=== PATIENT | female | born 1990 | race Hispanic/Latino ===

== ENCOUNTER 2017-09-30 18:19 | Emergency (ER) | payer MEDICARE ==
[~2017-09-30] VITALS: Ht 157.5 cm; Wt 110.7 kg
== END 2017-09-30 21:29 | disposition home or self-care (01) ==
LOC: FSED 18:19

== ENCOUNTER 2017-10-16 19:03 | Emergency (ER) | payer OTHER ==
[~2017-10-16] VITALS: Ht 157.5 cm; Wt 110.7 kg
--- OUTSIDE RECORDS SUMMARY | 2017-10-16 19:06 | XMS REPORT | Continuity of Care Document ---
Author Author [facility] Organization [facility] Address [address] [place] [address] Phone Unavailable Care Team Providers Care All Round Logger Name Role Phone MOHAN BRUCE MD PCP Advance Directives Directive Response Recorded Date/Time Does the patient have an advance directive? No 09/30/17 6:29pm Do you have a Directive to Physician? No 09/30/17 6:30pm Do you have a Medical Power of Solar Sales Advisor? No 09/30/17 6:30pm Do you have an out of hospital Do Not Resuscitate Order? No 09/30/17 6:30pm Do you have any special needs we should be aware of? No 09/30/17 6:30pm Do you have a support person here with you today? No 09/30/17 6:30pm Did patient receive Notice of Privacy Practices? Yes 09/30/17 6:30pm Did patient receive patient rights and responsibilities? Yes 09/30/17 6:30pm Problems No problem information available. Medications No medication information available. Social History Smoking Status Start Date Stop Date Former smoker Hospital Discharge Instructions No hospital discharge instruction information available. Plan of Care Discharge Date 09/30/17 9:29pm Disposition HOME, SELF-CARE Condition at Discharge Stable Instructions/Education Provided Cholelithiasis Forms Provided Work/School Excuse Prescriptions See Medication Section Additional Instructions/Education DISCHARGE INSTRUCTIONS Drink plenty of fluids. Warnings: GENERAL WARNINGS: Return or contact your physician immediately if your condition worsens or changes unexpectedly, if not improving as expected, or if other problems arise. Prescription Medications: Zofran 4 mg: Take 1 orally every six hours as needed for nausea/vomiting. Dispense ten (10). No refills. Substitution is permissible. Follow-up: Return to the emergency department as needed. Functional Status No functional status information available. Allergies, Adverse Reactions, Alerts No known allergies. Immunizations No immunization information available. Vital Signs Acute Vital Signs Vital Response Date/Time Height 5 ft 2 in 09/30/2017 6:35pm Weight 244.13 lb 09/30/2017 6:35pm Body Mass Index 44.7 kg/m^2 09/30/2017 6:35pm Results No relevant diagnostic test, laboratory data and/or discharge summary information available. Procedures No procedure information available. Encounters Encounter Location Arrival/Admit Date Discharge/Depart Date Attending Provider Departed Emergency Room [facility] 09/30/17 6:19pm 9:29pm MAYLIN PICKETT MD
[2017-10-16 19:24] LABS: BASOPHILS % 0.3 % (0.0-1.0); EOSINOPHILS # (AUTO) 0.1 (0.0-0.4); EOSINOPHILS % 0.8 % (0.0-6.0); HEMATOCRIT 34.8 % (34.2-44.1); HEMOGLOBIN 11.8 g/dL (12.0-16.0); LYMPHOCYTES # (AUTO) 1.6 (1.0-3.2); LYMPHOCYTES % 16.1 % (18.0-39.1); MEAN CORPUSCULAR HEMOGLOBIN 30.9 pg (28-32); MEAN CORPUSCULAR HGB CONC 33.9 g/dL (31-35); MEAN CORPUSCULAR VOLUME 91.1 fL (81-99); MONOCYTES # (AUTO) 0.6 (0.2-0.8); MONOCYTES % 6.2 % (4.4-11.3); NEUTROPHILS # (AUTO) 7.4 (2.1-6.9); NEUTROPHILS % 76.2 % (38.7-80.0); PLATELET COUNT 165 x10e3/uL (140-360); RED BLOOD COUNT 3.82 x10e6/uL (3.6-5.1); RED CELL DISTRIBUTION WIDTH 12.8 % (11.7-14.4)
[2017-10-16 19:42] LABS: AMYLASE 25 U/L (25-125); LIPASE 10 U/L (8-78)
[2017-10-16 19:44] LABS: ALANINE AMINOTRANSFERASE 45 IU/L (0-55); ALBUMIN 3.7 g/dL (3.5-5.0); ALBUMIN/GLOBULIN RATIO 0.9 (0.8-2.0); ALKALINE PHOSPHATASE 67 IU/L (40-150); ANION GAP 13.8 mmol/L (8-16); BLOOD UREA NITROGEN 5 mg/dL (7-26); BUN/CREATININE RATIO 9 (6-25); CALCIUM 9.8 mg/dL (8.4-10.2); CARBON DIOXIDE 20 mmol/L (22-29); CHLORIDE 106 mmol/L (98-107); CREATININE, SERUM 0.56 mg/dL (0.57-1.11); EST GLOMERULAR FILTRATION RATE > 60 ML/MIN (60-); GLUCOSE 92 mg/dL (74-118); POTASSIUM 3.8 mmol/L (3.5-5.1); SODIUM 136 mmol/L (136-145)
[2017-10-16 21:09] LABS: BILIRUBIN,URINE NEGATIVE (NEGATIVE); CLARITY,URINE SL CLOUDY (CLEAR); COLOR,URINE STRAW (YELLOW); KETONES,URINE 2+ (NEGATIVE); LEUKOCYTE ESTERASE ,URINE NEGATIVE (NEGATIVE); NITRITE,URINE NEGATIVE (NEGATIVE); PROTEIN,URINE DIPSTICK 1+ (NEGATIVE); URINE UROBILINOGEN 1 mg/dL (0.2 - 1)
[2017-10-16 21:19] LABS: BACTERIA,URINE MANY /HPF; EPITHELIAL CELLS,URINE MANY /LPF
--- NOTE | 2017-10-17 00:13 | Diagnostic Imaging Report ---
EXAM: US OB COMPLETE SINGLE GEST DATE: 10/16/2017 12:00 AM INDICATION: History of gallstones, , abdominal pain COMPARISON: None TECHNIQUE: Multiple transabdominal images of the uterus and fetus were obtained using perales-scale, color Doppler and M-mode. FINDINGS: A1 Type of Gestation: [place] GA by current U/S: 19w 3d Measurements: BPD 44 mm 19w 2d HC 172.3 mm 19w 6d AC 144.6 mm 19w 5d FL 30.4 mm 19w 3d Estimated Weight: 303.07 g, 56.9% size is appropriate for gestational age. Visualized Anatomy: Four chamber cardiac view Regular cardiac rhythm - limited Stomach Kidneys Bladder - not seen Position: Cephalic Placental Location: Anterior No evidence of placental previa. The placental tip is 5.6 cm from the internal cervical os. Cervical Length: 5.3 cm, transabdominal view There is no funneling of the internal os. Amniotic Fluid Index: 14.3 cm Heart Rate: 153 bpm IMPRESSION: Single living intrauterine . No acute abnormality identified. Signed by: Dr Ramona Ashraf MD on 10/17/2017 12:09 AM
--- NOTE | 2017-10-17 00:17 | Diagnostic Imaging Report ---
EXAM: US GALLBLADDER DATE: 10/16/2017 12:00 AM INDICATION \S\H/O GALLSTONES, , abdominal pain COMPARISON:none TECHNIQUE: Transverse and longitudinal anderson scale and color doppler sonographic images of the upper abdomen were obtained. FINDINGS: LIVER 18.8 cm in the right midclavicular line, enlarged Increased echogenicity, normal contour, no masses. GALLBLADDER Cholelithiasis without wall-thickening or pericholecystic fluid. Negative sonographic Almaguer's sign. BILE DUCTS No intra nor extra-hepatic biliary dilation. Common bile duct measures 0.3 cm PANCREAS: Poorly visualized due to overlying bowel gas. RIGHT KIDNEY: 11.7 cm Echogenicity: Normal Collecting System: No hydronephrosis Stones: None Cyst/Mass: None VESSELS: Aorta: Visualized portions are within normal size limits Inferior Vena Cava: Visualized portions are normal Main Portal Vein: 1.2 cm, with hepatopetal flow. FREE FLUID: None IMPRESSION: 1. Hepatic steatosis with hepatomegaly. 2. Cholelithiasis without evidence of acute cholecystitis. Signed by: Dr Ramona Ashraf MD on 10/17/2017 12:14 AM
[2017-10-17 01:43] VITALS: BP 109/84
== END 2017-10-17 01:55 | disposition home or self-care (01) ==
LOC: ER 19:03
DX: O99.612 Diseases of the digestive system complicating pregnancy, second trimester (principal); K80.20 Calculus of gallbladder without cholecystitis without obstruction; O99.282 Endocrine, nutritional and metabolic diseases complicating pregnancy, second trimester; E03.9 Hypothyroidism, unspecified; Z3A.14 14 weeks gestation of pregnancy
CPT/HCPCS: 36415; 76705; 76805; 80053; 81001; 82150; 83690; 84702; 85025; 99284